=== PATIENT | female | born 1980 | race Caucasian/White ===

== ENCOUNTER 2023-04-06 11:14 | Emergency (ER) | payer SELFPAY ==
[~2023-04-06] VITALS: Ht 154.9 cm; Wt 109.0 kg
[2023-04-06 11:20] VITALS: BP 139/102
[2023-04-06] MEDS ORDERED: SODIUM CHLORIDE 0.9% 1,000 ML IV ONE (11:30)
== END 2023-04-06 12:16 | disposition home or self-care (01) ==
LOC: ER 11:14
DX: F10.129 Alcohol abuse with intoxication, unspecified (principal); Y90.0 Blood alcohol level of less than 20 mg/100 ml; E11.9 Type 2 diabetes mellitus without complications; I10 Essential (primary) hypertension
CPT/HCPCS: 99283; J7030